=== PATIENT | female | born 1930 | race Caucasian/White ===

== ENCOUNTER → 2017-08-04 | Outpatient (REF) | payer MEDICARE ==
[~2017-08-04] MED LIST: /DULO30CA PO; /VERA12TA PO; ABIL5TAB OR; ACET500T PO; ASPI81TA45 PO; ATEN50TA2 PO; BENI20TA11 OR; CALC500T36 PO; CLON0.5T PO; COZA25TA8 PO; FERR325T3 PO; LASI20TA PO; LASI40TA; LASI40TA PO; LETR2.5T PO; LEVO175T3 PO; MAGN250T OR; METH5TAB2; MIRA255PW PO; OXYB5TAB4 OR; OXYB5TAB5 OR; OXYC10TA12; OXYC10TA97; OXYC10TA97 OR; OXYC5CAP4 OR; PACE400T PO; PERC5TAB8 PO; PERCOCET PO; PRIL20CA PO; PRIMI25TA; PRIMI25TA PO; SENO8.6T9 PO; TENO50TA PO; TRAZ100T2 PO; TRAZ150T; TRAZ150T PO; TUMS500C PO; TYLE325T5 PO; VERA180C3 PO; VESICARE OR; VITAMIN D PO; VITAMIN D50000 UNT; VOLT1GEL TOP
[2017-08-05 11:28] LABS: MEAN CORPUSCULAR HEMOGLOBIN 32.4 pg (27.0-33.0); MEAN CORPUSCULAR HGB CONC 32.6 g/dl (32.0-36.5); MEAN CORPUSCULAR VOLUME 99.4 fl (80.0-96.0); WHITE BLOOD COUNT 5.4 10^3/uL (4.0-10.0)
[2017-08-05 11:51] LABS: ALBUMIN 3.6 GM/DL (3.2-5.2); ALBUMIN/GLOBULIN RATIO 1.06 (1.00-1.93); ALKALINE PHOSPHATASE 69 U/L (45-117); ALT/SGPT 28 U/L (12-78); ANION GAP 5 MEQ/L (8-16); AST/SGOT 32 U/L (15-37); BILIRUBIN,TOTAL 0.3 MG/DL (0.2-1.0); BLOOD UREA NITROGEN 20 MG/DL (7-18); CALCIUM LEVEL 8.7 MG/DL (8.8-10.2); CARBON DIOXIDE LEVEL 35 MEQ/L (21-32); CHLORIDE LEVEL 98 MEQ/L (98-107); CREATININE FOR GFR 0.91 MG/DL (0.55-1.02); GLOMERULAR FILTRATION RATE > 60.0 (>32); GLUCOSE, FASTING 94 MG/DL (83-110); POTASSIUM SERUM 4.1 MEQ/L (3.5-5.1); SODIUM LEVEL 138 MEQ/L (136-145)
== END ==
LOC: M SFHCCLAY 15:43
PROVIDERS: ATTEND Family Medicine
DX: I10 Essential (primary) hypertension (principal); G25.0 Essential tremor; I47.1 Supraventricular tachycardia; E03.9 Hypothyroidism, unspecified
CPT/HCPCS: 80053; 84443; 85027; 90662; G0008; G0463

== ENCOUNTER → 2017-08-06 | Outpatient (REF) | payer MEDICARE | LOC: M SFHCCLAY 13:27 | PROVIDERS: ATTEND Family Medicine | DX: D64.9 Anemia, unspecified (principal) ==

== ENCOUNTER → 2018-01-20 | Outpatient (REF) | payer MEDICARE ==
[2018-01-20 11:52] LABS: HEMATOCRIT 34.4 % (36.0-47.0); HEMOGLOBIN 11.1 g/dl (12.0-16.0); MEAN CORPUSCULAR HEMOGLOBIN 32.4 pg (27.0-33.0); MEAN CORPUSCULAR HGB CONC 32.3 g/dl (32.0-36.5); MEAN CORPUSCULAR VOLUME 100.3 fl (80.0-96.0); PLATELET COUNT, AUTOMATED 234 10^3/uL (150-450); RED BLOOD COUNT 3.43 10^6/uL (4.00-5.40); RED CELL DISTRIBUTION WIDTH 13.5 % (11.5-14.5); WHITE BLOOD COUNT 6.5 10^3/uL (4.0-10.0)
[2018-01-20 12:34] LABS: ALBUMIN 3.7 GM/DL (3.2-5.2); ALBUMIN/GLOBULIN RATIO 1.12 (1.00-1.93); ALKALINE PHOSPHATASE 74 U/L (45-117); ALT/SGPT 37 U/L (12-78); ANION GAP 7 MEQ/L (8-16); AST/SGOT 36 U/L (7-37); BILIRUBIN,TOTAL 0.4 MG/DL (0.2-1.0); BLOOD UREA NITROGEN 25 MG/DL (7-18); CALCIUM LEVEL 8.8 MG/DL (8.8-10.2); CARBON DIOXIDE LEVEL 32 MEQ/L (21-32); CHLORIDE LEVEL 100 MEQ/L (98-107); CREATININE FOR GFR 1.07 MG/DL (0.55-1.30); GLOMERULAR FILTRATION RATE 51.8 (>32); GLUCOSE, FASTING 111 MG/DL (70-100); POTASSIUM SERUM 3.7 MEQ/L (3.5-5.1); SODIUM LEVEL 139 MEQ/L (136-145)
== END ==
LOC: M SFHCCLAY 09:07
DX: E03.9 Hypothyroidism, unspecified (principal); G25.0 Essential tremor; I10 Essential (primary) hypertension
CPT/HCPCS: 84443

== ENCOUNTER 2018-02-10 12:55 | Emergency (ER) | payer MEDICARE ==
[2018-02-10 14:21] LABS: HEMATOCRIT 32.6 % (36.0-47.0); HEMOGLOBIN 10.9 g/dl (12.0-15.5); MEAN CORPUSCULAR HEMOGLOBIN 32.7 pg (27.0-33.0); MEAN CORPUSCULAR HGB CONC 33.4 g/dl (32.0-36.5); MEAN CORPUSCULAR VOLUME 97.9 fl (80.0-96.0); PLATELET COUNT, AUTOMATED 195 10^3/uL (150-450); RED BLOOD COUNT 3.33 10^6/uL (4.00-5.40); RED CELL DISTRIBUTION WIDTH 13.4 % (11.5-14.5); WHITE BLOOD COUNT 7.9 10^3/uL (4.0-10.0)
[2018-02-10 14:41] LABS: AMPHETAMINES LEVEL URINE NEGATIVE (NEGATIVE); BARBITURATES URINE POSITIVE (NEGATIVE); BENZODIAZEPINES URINE NEGATIVE (NEGATIVE); CANNABINOIDS URINE NEGATIVE (NEGATIVE); COCAINE METABOLITE URINE NEGATIVE (NEGATIVE); METHADONE URINE NEGATIVE (NEGATIVE); OPIATES URINE POSITIVE (NEGATIVE); PHENCYCLIDINE URINE NEGATIVE (NEGATIVE)
[2018-02-10 14:50] LABS: ACETAMINOPHEN LEVEL < 2.0 UG/ML (10.0-30.0); ALBUMIN 3.5 GM/DL (3.2-5.2); ALBUMIN/GLOBULIN RATIO 1.06 (1.00-1.93); ALKALINE PHOSPHATASE 69 U/L (45-117); ALT/SGPT 29 U/L (12-78); ANION GAP 7 MEQ/L (8-16); AST/SGOT 36 U/L (7-37); BILIRUBIN,DIRECT 0.1 MG/DL (0.0-0.2); BILIRUBIN,TOTAL 0.4 MG/DL (0.2-1.0); BLOOD UREA NITROGEN 21 MG/DL (7-18); CALCIUM LEVEL 8.5 MG/DL (8.8-10.2); CARBON DIOXIDE LEVEL 30 MEQ/L (21-32); CHLORIDE LEVEL 104 MEQ/L (98-107); CREATININE FOR GFR 0.93 MG/DL (0.55-1.30); GLOMERULAR FILTRATION RATE > 60.0 (>32); GLUCOSE, FASTING 101 MG/DL (70-100); POTASSIUM SERUM 3.7 MEQ/L (3.5-5.1); SALICYLATE LEVEL < 1.7 MG/DL (5.0-30.0); SODIUM LEVEL 141 MEQ/L (136-145); TOTAL PROTEIN 6.8 GM/DL (6.4-8.2)
[2018-02-10 14:52] LABS: ETHYL ALCOHOL (ETHANOL) < 0.003 % (0.000-0.010)
== END 2018-02-10 17:16 | disposition home or self-care (01) ==
LOC: M ED 12:55
DX: F43.0 Acute stress reaction (principal); I10 Essential (primary) hypertension; E07.9 Disorder of thyroid, unspecified; K21.9 Gastro-esophageal reflux disease without esophagitis; Z91.048 Other nonmedicinal substance allergy status; Z79.899 Other long term (current) drug therapy; Z79.890 Hormone replacement therapy; Z79.82 Long term (current) use of aspirin
CPT/HCPCS: G0480

== ENCOUNTER → 2018-04-13 | Outpatient (REF) | payer MEDICARE ==
[2018-04-13 20:39] LABS: APPEARANCE, URINE CLOUDY (CLEAR); BACTERIA, URINE AUTO NEGATIVE (NEGATIVE); BILIRUBIN, URINE AUTO NEGATIVE (NEGATIVE); BLOOD, URINE BLOOD NEGATIVE (NEGATIVE); CALCIUM OXALATE CRYSTALS MODERATE; COLOR, URINE AMBER (YELLOW); GLUCOSE, URINE (UA) AUTO NEGATIVE (NEGATIVE); KETONE, URINE AUTO NEGATIVE (NEGATIVE); LEUKOCYTE ESTERASE, URINE AUTO TRACE (NEGATIVE); MUCUS, URINE SMALL (NEGATIVE); NITRITE, URINE AUTO NEGATIVE (NEGATIVE); PROTEIN, URINE AUTO NEGATIVE (NEGATIVE); RBC, URINE AUTO 5 /HPF (0-3); SPECIFIC GRAVITY URINE AUTO 1.023 (1.002-1.035); SQUAMOUS EPITHELIAL CELL UR AU 3 /HPF (0-6); WBC, URINE AUTO 4 /HPF (0-3)
== END ==
LOC: M LAB REF 16:23
DX: N39.46 Mixed incontinence (principal)
CPT/HCPCS: 81001

== ENCOUNTER → 2018-12-29 | Outpatient (REF) | payer MEDICARE ==
[~2018-12-29] MED LIST changes: +HYDR-3713 PO
[2018-12-29 17:42] LABS: HEMOGLOBIN 11.5 g/dl (12.0-15.5); MEAN CORPUSCULAR HEMOGLOBIN 32.8 pg (27.0-33.0); MEAN CORPUSCULAR HGB CONC 32.9 g/dl (32.0-36.5); MEAN CORPUSCULAR VOLUME 99.7 fl (80.0-96.0); PLATELET COUNT, AUTOMATED 226 10^3/uL (150-450); RED BLOOD COUNT 3.51 10^6/uL (4.00-5.40); WHITE BLOOD COUNT 6.3 10^3/uL (4.0-10.0)
[2018-12-29 17:47] LABS: ALBUMIN 3.4 GM/DL (3.2-5.2); BILIRUBIN,TOTAL 0.4 MG/DL (0.2-1.0); CALCIUM LEVEL 8.9 MG/DL (8.8-10.2); CREATININE FOR GFR 1.02 MG/DL (0.55-1.30); FREE T4 1.2 NG/DL (0.76-1.46); GLOMERULAR FILTRATION RATE 54.6 (>32); THYROID STIMULATING HORMONE 2.27 uIU/ML (0.358-3.740); TOTAL PROTEIN 6.6 GM/DL (6.4-8.2)
== END ==
LOC: M SFHCCLAY 10:06
PROVIDERS: ATTEND Family Medicine
DX: I47.1 Supraventricular tachycardia (principal); E03.9 Hypothyroidism, unspecified; I10 Essential (primary) hypertension
CPT/HCPCS: 80053; 84439; 84443; 85027; 90682; G0008

== ENCOUNTER → 2019-02-19 | Outpatient (REF) | payer MEDICARE ==
[~2019-02-19] MED LIST changes: -/DULO30CA PO; +CYMB1CAP5 PO; -MIRA255PW PO; +OXYC1TAB23 PO; -PERCOCET PO; +POLY1POW4 PO
[2019-02-19 17:18] LABS: BLOOD UREA NITROGEN 12 MG/DL (7-18); CARBON DIOXIDE LEVEL 36 MEQ/L (21-32); CHLORIDE LEVEL 90 MEQ/L (98-107); GLOMERULAR FILTRATION RATE > 60.0 (>32); GLUCOSE, FASTING 102 MG/DL (70-100); SODIUM LEVEL 132 MEQ/L (136-145); URIC ACID 3.3 MG/DL (2.6-6.0)
[2019-02-19 17:20] LABS: BASO % 0.3 % (0.0-1.0); EOS # 0.1 10^3/uL (0.0-0.50); EOS % 0.5 % (0.0-3.0); HEMOGLOBIN 11.1 g/dl (12.0-15.5); LYMPH # 1.7 10^3/uL (1.5-4.5); LYMPH % 14.6 % (24.0-44.0); MEAN CORPUSCULAR HEMOGLOBIN 33.2 pg (27.0-33.0); MEAN CORPUSCULAR HGB CONC 33.6 g/dl (32.0-36.5); MEAN CORPUSCULAR VOLUME 98.8 fl (80.0-96.0); MONO # 1.2 10^3/uL (0.0-0.8); MONO % 10.7 % (0.0-5.0); NEUTROPHILS # 8.3 10^3/uL (1.8-7.7); NEUTROPHILS % 73.5 % (36.0-66.0); PLATELET COUNT, AUTOMATED 336 10^3/uL (150-450); RED BLOOD COUNT 3.34 10^6/uL (4.00-5.40); WHITE BLOOD COUNT 11.3 10^3/uL (4.0-10.0)
== END ==
LOC: M SFHCCLAY 12:09
PROVIDERS: ATTEND Family Medicine
DX: L03.119 Cellulitis of unspecified part of limb (principal)
CPT/HCPCS: 36415; 80048; 84550; 85025; G0463

== ENCOUNTER 2019-03-27 09:59 | Inpatient (IN) | payer MEDICARE ==
[~2019-03-27] VITALS: Ht 157.5 cm; Wt 60.0 kg
[2019-03-27] MEDS: TOLTERODINE TARTRATE 2 MG LA CAP (DETROL LA) PO SCH (09:00)
[2019-03-27] MEDS ORDERED: HYDR-4571 PO (10:13)
[2019-03-27] MEDS ORDERED: OXYB5TAB PO (10:14)
[2019-03-27] MEDS ORDERED: HYDR-3363 PO (10:14)
--- NOTE | 2019-03-27 10:39 | REP ---
CT Head without contrast HISTORY: Infarction COMPARISON: 04/23/2013 Areas of decreased attenuation are present in the periventricular white matter. This represents small-vessel ischemic disease. There is no intraparenchymal hemorrhage, acute infarct, mass or midline shift. The ventricular system and cortical sulci as well as subarachnoid space in the posterior fossa are dilated consistent with mild volume loss. There is no extra cerebral collection. There is no fracture. The visualized sinuses are clear. IMPRESSION: 1. Small vessel ischemic disease. 2. Mild volume loss. Electronically Signed by Moises Grier MD 03/27/2019 10:31 A
[2019-03-27 11:09] LABS: BASO % 0.4 % (0.0-1.0); EOS % 0.1 % (0.0-3.0); HEMATOCRIT 39.4 % (36.0-47.0); HEMOGLOBIN 13.1 g/dl (12.0-15.5); LYMPH # 0.9 10^3/uL (1.5-4.5); LYMPH % 7.9 % (24.0-44.0); MEAN CORPUSCULAR HEMOGLOBIN 33.9 pg (27.0-33.0); MEAN CORPUSCULAR HGB CONC 33.2 g/dl (32.0-36.5); MEAN CORPUSCULAR VOLUME 101.8 fl (80.0-96.0); MONO # 0.9 10^3/uL (0.0-0.8); MONO % 7.8 % (0.0-5.0); NEUTROPHILS # 9.2 10^3/uL (1.8-7.7); NEUTROPHILS % 83.5 % (36.0-66.0); PLATELET COUNT, AUTOMATED 276 10^3/uL (150-450); RED BLOOD COUNT 3.87 10^6/uL (4.00-5.40)
--- NOTE | 2019-03-27 11:11 | REP ---
Chest one-view HISTORY: Infarction Comparison: 08/07/2013 A minimal increase in interstitial markings is present in the lower lobes consistent with chronic interstitial fibrosis. The heart is normal in size. The pulmonary vasculature is normal in appearance. Impression: Bibasilar chronic interstitial fibrosis. Electronically Signed by Moisse Grier MD 03/27/2019 11:02 A
[2019-03-27 11:21] LABS: INR 0.99; PROTHROMBIN TIME 13.2 SECONDS (12.1-14.4)
[2019-03-27 11:22] LABS: PARTIAL THROMBOPLASTIN TIME 29.8 SECONDS (25.4-37.6)
[2019-03-27] MEDS ORDERED: diphenhydrAMINE INJ 50MG/ML VIAL (J1200) IV STA (11:28)
[2019-03-27] MEDS ORDERED: methylPREDNISolone INJ 125 MG/2 ML VIAL (J2930) IV ONE (11:30)
[2019-03-27] MEDS ORDERED: FAMOTIDINE INJ 20MG/2ML VIAL (S0028) IVP ONE (11:30)
[2019-03-27 11:36] LABS: CALCIUM LEVEL 9.3 MG/DL (8.8-10.2); CREATININE FOR GFR 0.97 MG/DL (0.55-1.30); GLOMERULAR FILTRATION RATE 57.8 (>32); MB/CK RELATIVE INDEX 1.96 (< OR =4); TROPONIN I 0.69 NG/ML (< 0.10)
[2019-03-27] MEDS ORDERED: TRAZ150T90 PO (12:11)
[2019-03-27] MEDS ORDERED: LEVO175T19 PO (12:11)
[2019-03-27] MEDS ORDERED: VITAD1000T PO (12:11)
[2019-03-27] MEDS ORDERED: ECOT81TA5 PO (12:11)
[2019-03-27] MEDS ORDERED: OYST1TAB PO (12:11)
[2019-03-27] MEDS ORDERED: TOLT4CAP3 PO (12:11)
[2019-03-27] MEDS ORDERED: DULO60CA35 PO (12:11)
[2019-03-27] MEDS ORDERED: LOSA100T50 PO (12:11)
[2019-03-27] MEDS ORDERED: SENN-23 PO (12:11)
[2019-03-27] MEDS ORDERED: PRIM50TA6 PO (12:16)
[2019-03-27] MEDS ORDERED: PERCOCET PO (12:16)
[2019-03-27] MEDS ORDERED: FURO20TA2 PO (12:16)
[2019-03-27] MEDS ORDERED: POTASSIUM CHLORIDE 10% LIQ 20 MEQ/15 ML UDC PO ONE (13:00)
[2019-03-27 13:20] VITALS: BP 138/96
[2019-03-27] MEDS ORDERED: SLF 3 ML SYR IV PRN (15:30)
[2019-03-27] MEDS ORDERED: KCL 20MEQ IN 0.45NS 1000ML 1,000 ML IV SCH (15:45)
[2019-03-27 16:00] VITALS: BP 145/88
[2019-03-27] MEDS ORDERED: diphenhydrAMINE 50 MG CAP PO PRN (16:00)
[2019-03-27 20:00] VITALS: BP 146/74
[2019-03-27] MEDS: methylPREDNISolone INJ 125 MG/2 ML VIAL (J2930) IV SCH (20:25)
[2019-03-27] MEDS: SLF 3 ML SYR IV SCH (20:26)
[2019-03-27] MEDS: traZODone 25MG PER 1/2 TABLET PO SCH (20:26)
--- NOTE | 2019-03-27 21:46 | HPE ---
DATE OF ADMISSION: 03/27/2019 CHIEF COMPLAINT: Angioedema of the tongue. HISTORY: Sanjay Lockett is an 88-year-old patient of Dr. Taipa, admitted with swollen tongue she awoke with this morning. Family was concerned she was having a stroke, because she was having slurred speech. Upon arrival to the emergency room, it was astutely discovered that her tongue was quite swollen and edematous and isolation of any other neurologic injury. She had an episode 02/19/2019, where she presented to the [place] office with sudden office of swelling of her left foot. There was no precipitating injury. It just became swollen and remained swollen for several days. It was felt to be a cellulitis but in retrospect probably was another episode of angioedema. PAST MEDICAL HISTORY: 1. Hypertension. 2. History of depression. 3. Overactive bladder. 4. Hypothyroidism. 5. Basal cell carcinoma. 6. Supraventricular tachycardia (SVT), for which she was admitted April 2013. Had a normal echocardiogram. 7. Left breast cancer, status post lumpectomy and radiation. ALLERGIES: Band-Aids, which cause a rash. ARIMIDEX caused severe leg pain. Now it looks as though she is allergic to her LOSARTAN, but will include angiotensin receptor blockers (ARBs) and angiotensin-converting enzyme (ANAMARIA) inhibitors in the allergy list. CURRENT MEDICATIONS: - Cymbalta 60 mg daily - omeprazole 20 mg daily - oxybutynin ER 5 mg daily - oxycodone 5/325 one to two four times a day as needed, maximum dose 7 - furosemide 20 mg daily - levothyroxine 175 mcg daily - losartan 100 mg daily - trazodone 150 mg one and one a half tablets daily - primidone 50 mg three times a day - aspirin 81 mg daily - senna as needed - vitamin D - calcium - loperamide 2 mg as needed SURGICAL HISTORY: 1. Cholecystectomy. 2. Sounds like she had a pilonidal cyst drained. 3. Skin graft on her scalp for basal cell carcinoma. 4. Lumpectomy of the left breast. 5. She had an electrophysiology study (EPS) with an ablation procedure done for SVT August 2013. FAMILY HISTORY: Father of suicide. He had a history of cancer. Mother at 93. She had strokes, myocardial infarction ([place]) at a late age. SOCIAL HISTORY: Former smoker; quit over 10 years ago. No significant alcohol intake. 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 She is . Has a daughter, brother, son-in-law, and grandson living in the home with her. Lives at her daughter's. REVIEW OF SYSTEMS: No trouble swallowing secretions. No shortness of breath. No throat tightening or swelling of her lips. No chest pain, cough, hemoptysis, hematemesis. PHYSICAL EXAMINATION: VITAL SIGNS: Per flow sheet, 138/96, pulse of 100, respiratory rate 16, 96% oxygen saturation. GENERAL APPEARANCE: She is resting in bed in no distress. Pale, elderly. Pupils equal, round, reactive to light. Tympanic membranes (TMs) normal. Oropharynx shows her tongue edematous. No trauma. Lips are not swollen. There is no stridor. She is swallowing saliva without difficulty. LUNGS: Clear. No stridor. No wheezes. HEART: Regular rate and rhythm. No murmur. ABDOMEN: Soft and nontender. No masses. EXTREMITIES:. No clubbing or cyanosis. There is trace peripheral edema of the dorsum of the left foot. On the right, no erythema. NEUROLOGIC: Shows normal strength, reflexes, sensation. LABORATORY DATA: Electrolytes show a potassium of 3.0; otherwise unremarkable. Troponin was 0.69. White count 11, hemoglobin 13.3, platelets 276. PTT normal. PT normal. Chest x-ray: Showed bilateral fibrosis. CT of brain shows volume loss, small-vessel disease. IMPRESSION: 1. Angioedema of the tongue, probably from her losartan. In retrospect, this is probably the second event, with the swelling her left foot a month ago being the signal event. Losartan has been held. She should avoid ANAMRAIA inhibitors and ARBs in the future. Will monitor her blood pressure off medication. Probably start a calcium channel oscar or thiazide diuretic. She needs blood pressure control before discharge. 2. Mildly elevated troponin. Serial troponins have been ordered. 3. Hypothyroidism. Keep her on dose of levothyroxine. 4. Overactive bladder. Continue her tolterodine ER 4 mg daily. 5. History of depression. Continue her duloxetine 60 mg daily. She has been placed in the progressive care unit (PCU). I have given her intravenous (IV) cortisone, IV Benadryl, and IV Pepcid. Will consult ears, nose, and throat (ENT. Dr. Limon is attraction worker. I have called his office. They will relay the message for him to call. At this point, she is stable, but I think it would be prudent for ENT to at least know she is here in case things worsen subsequently. She has no upper airway obstruction or trouble handling secretions at all at this point.
[2019-03-27 22:38] LABS: MB/CK RELATIVE INDEX 5.22 (< OR =4); TROPONIN I 8.98 NG/ML (< 0.10)
[2019-03-27 22:45] VITALS: BP 160/88
[2019-03-27 22:46] VITALS: BP 160/88
[2019-03-27] MEDS: ASPIRIN 325 MG TAB PO SCH (23:12)
[2019-03-27] MEDS: CLOPIDOGREL 75 MG TAB PO SCH (23:12)
[2019-03-27] MEDS: METOPROLOL TART 25 MG TABLET PO SCH (23:12)
[2019-03-27] MEDS: ENOXAPARIN 100MG/1ML SYRINGE (J1650) SC SCH (23:50)
[2019-03-27] MEDS: ROSUVASTATIN 10 MG TAB (CRESTOR) PO SCH (23:50)
[2019-03-28] MEDS ORDERED: FAMOTIDINE INJ 20MG/2ML VIAL (S0028) IVP SCH
[2019-03-28] MEDS: FAMOTIDINE IV BAG 20 MG in APPROPRIATE DILUENT 1 EA IV SCH ×2 (00:32→12:25)
[2019-03-28 04:00] VITALS: BP 133/65
[2019-03-28] MEDS: methylPREDNISolone INJ 125 MG/2 ML VIAL (J2930) IV SCH ×3 (04:01→20:05)
[2019-03-28] MEDS: SLF 3 ML SYR IV SCH ×3 (05:42→20:07)
[2019-03-28 05:43] LABS: BASO % 0.2 % (0.0-1.0); HEMATOCRIT 41.3 % (36.0-47.0); HEMOGLOBIN 13.3 g/dl (12.0-15.5); LYMPH % 8.4 % (24.0-44.0); MEAN CORPUSCULAR HEMOGLOBIN 32.8 pg (27.0-33.0); MEAN CORPUSCULAR HGB CONC 32.2 g/dl (32.0-36.5); MEAN CORPUSCULAR VOLUME 101.7 fl (80.0-96.0); MONO # 0.9 10^3/uL (0.0-0.8); MONO % 7.3 % (0.0-5.0); NEUTROPHILS # 10.4 10^3/uL (1.8-7.7); NEUTROPHILS % 83.8 % (36.0-66.0); PLATELET COUNT, AUTOMATED 255 10^3/uL (150-450); RED BLOOD COUNT 4.06 10^6/uL (4.00-5.40); WHITE BLOOD COUNT 12.4 10^3/uL (4.0-10.0)
[2019-03-28] MEDS ORDERED: LEVOTHYROXINE 150MCG TABLET (0.15MG) PO SCH (06:00)
--- NOTE | 2019-03-28 06:01 | ECGEPIP ---
[facility] - ED Test Date: 2019-03-27 Pat Name: MAKENZIE LOZA Department: Room: - Gender: F Crime Victim Specialist: : 1930 Requested By: NIALL Crow Order Number: [id number] Reading MD: Bart Velez Measurements Intervals [place] Rate: 91 P: [place]: 0 QRS: -8 QRSD: 155 T: 0 QT: 437 QTc: 540 Interpretive Statements ATRIAL FIBRILLATION MODERATE INTRAVENTRICULAR CONDUCTION DELAY NO PRIORS FOR COMPARISON Electronically Signed on 03-28-2019 6:01:21 EDT by Bart Velez
[2019-03-28 06:06] LABS: CALCIUM LEVEL 8.6 MG/DL (8.8-10.2); CREATININE FOR GFR 0.95 MG/DL (0.55-1.30); GLOMERULAR FILTRATION RATE 59.2 (>32); MAGNESIUM LEVEL 1.8 MG/DL (1.8-2.4); MB/CK RELATIVE INDEX 4.71 (< OR =4); POTASSIUM SERUM 3.6 MEQ/L (3.5-5.1); TROPONIN I 6.2 NG/ML (< 0.10)
--- NOTE | 2019-03-28 06:06 | ECGEPIP ---
[facility] - ED Test Date: 2019-03-27 Pat Name: MAKENZIE LOZA Department: Room: [place] [address] Gender: F Grading Supervisor: : 1930 Requested By: NIALL Crow Order Number: [id number] Reading MD: Bart Velez Measurements Intervals [place] Rate: 98 P: [place]: 0 QRS: -3 QRSD: 82 T: 64 QT: 313 QTc: 401 Interpretive Statements ATRIAL FIBRILLATION WITH ABERRANT CONDUCTION OR VENTRICULAR PREMATURE COMPLEXES NONSPECIFIC ST & T-WAVE ABNORMALITY MODERATE INTRAVENTRICULAR CONDUCTION DELAY SIMILAR TO PRIOR ON SAME DATE Electronically Signed on 03-28-2019 6:05:37 EDT by Bart Velez
[2019-03-28 08:00] VITALS: BP 133/82
--- NOTE | 2019-03-28 08:33 | ECGEPIP ---
[facility] Test Date: 2019-03-28 Pat Name: MAKENZIE LOZA Department: Room: [place] [address] Gender: Female Boat Buffer Plastic: CORKY : 1930 Requested By: Hector Gil Order Number: [id number] Reading MD: Lola Lozada Measurements Intervals [place] Rate: 90 P: 54 [place]: 151 QRS: 5 QRSD: 83 T: 176 QT: 461 QTc: 565 Interpretive Statements SINUS RHYTHM WITH PAC ACUTE LAT STEMI NEW [id number] QTC NEW Spoke with pts n nurse on PCU She will notify DR Gil now Electronically Signed on 03-28-2019 8:33:03 EDT by Lola Lozada
--- NOTE | 2019-03-28 09:25 | IPN ---
DATE: 03/28/2019 Wave is seen in progressive care unit (PCU). She is short of breath today, more of labored respirations. She is not stridorous. Her tongue swelling is perhaps a little better than yesterday but not significantly. Of more significance is that she now appears to have evidence of a ST segment elevation myocardial infarction. She bumped her troponin from 0.69 on admission to 8.9 last night, down to 6.2 now. I discussed the case with Dr. Nunez this morning, at the time we are suspecting a non ST segment elevation myocardial infarction; however, followup electrocardiogram (EKG) was ordered, which shows inferolateral ST elevations, so I placed a call back to manager maintenance, Dr. Grossman. I electronically sent him copies of the electrocardiogram and he agrees with the interpretation. She denies any chest pain. She is not stridorous. She is not having any trouble with any secretions. In fact she wants to have some breakfast. She is tired of clear liquids. PHYSICAL EXAMINATION: 133/82, pulse 90, respiratory rate 18, 98% oxygen saturation. GENERAL APPEARANCE: She is elderly and frail. Her tongue is still quite swollen. Her speech is dysarthric from this. She is not having any stridor or trouble swallowing secretions. LUNGS: Clear. HEART: Regular rhythm. 1/6 systolic ejection murmur. ABDOMEN: Soft, nontender, no masses. EXTREMITIES: No peripheral edema. LABORATORIES: Troponin bumped to 8.9 and is now down to 6.2. Sodium 137, potassium 3.6, BUN 16, creatinine 0.9, glucose 118, white count 12.4, hemoglobin 13.3, platelets 255. IMPRESSION: 1. Angioedema of the tongue, probably from losartan. Continue steroids, antihistamines, H2 antagonist, and I have ordered some popsicles for her. We will advance her diet. 2. ST segment elevation myocardial infarction. Case was discussed with cardiology. She had been started on beta oscar, aspirin and Plavix last night. She is quite elderly and frail and I am not sure if she is a candidate for aggressive treatment. Cardiology is consulted. 3. Hypothyroidism. Continue current dose of levothyroxine. 4. History of depression. Continue duloxetine. The case was discussed with Dr. Limon yesterday and he is aware of the case. I had him on board in case her condition worsened overnight, which did not happen.
[2019-03-28] MEDS: ENOXAPARIN 100MG/1ML SYRINGE (J1650) SC SCH ×2 (09:52→20:05)
[2019-03-28] MEDS: CLOPIDOGREL 75 MG TAB PO SCH (09:54)
[2019-03-28] MEDS: ASPIRIN 325 MG TAB PO SCH (09:54)
[2019-03-28] MEDS: TOLTERODINE TARTRATE 2 MG LA CAP (DETROL LA) PO SCH (09:54)
[2019-03-28] MEDS: DULoxetine 30 MG CAP (CYMBALTA) PO SCH (09:54)
[2019-03-28] MEDS: METOPROLOL TART 25 MG TABLET PO SCH (09:54)
--- NOTE | 2019-03-28 11:37 | IPNPDOC ---
Text Note Date of Service The patient was seen on 03/28/19. NOTE CARDIOLOGY CONSULT NOTE FOR DR GARDNER HPI: Ms. Lockett is an 88 year old female who presented to the ED after a two day long duration of tongue swelling that came on acutely. She states that she had an episode of left foot swelling acutely develop about three months ago, she did not seek medical care for this either and instead it went away on its own at home. She has noted some chest discomfort, but she points to her left lower rib cage and LUQ area, for the past two days, shes never had this in the past. She said it is more of a sharp pain without radiation, she also noted some diffuse sweating associated with this, it has lasted intermittently for about two days, although she denies having the pain on examination today. She also had some accompanying nausea but no vomiting. She has had no fevers recently. She denied a recent medication change. She denied SOB or palpitations, she has no headache right now and no change in vision. She denies any associated jaw or shoulder pain. PAST MEDICAL HISTORY: Includes, HTN, hypothyroidism, BCC, SVT in 2012, L breast cancer s/p lumpectomy & radiation SURGICAL HISTORY: 1. Cholecystectomy. 2. Sounds like she had a pilonidal cyst drained. 3. Skin graft on her scalp for basal cell carcinoma. 4. Lumpectomy of the left breast. 5. She had an electrophysiology study (EPS) with an ablation procedure done for SVT August 2013. 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 lives at home on the second floor of her daughters home, her daughter is at home and helps her with her daily activities ROS: General: She is a bit tired this morning, but has no other complaints besides her swollen tongue HEENT: Denies recent headache or change in vision Resp: No SOB or wheezing noted,no cough Cardiac: No chest pain currently GI/: No change in bowel habits recently PE Vitals: See below General: This is an 88 year old women appearing her stated age, in bed, comfortable but with difficulty speaking due to diffuse enlargement of her tongue HEENT: EOMI, tongue is diffusely swollen, moist mucus membranes Resp: diminished throughout, no rales, crackles or wheezing Cardio: normal s1 and s2., no s4 appreciated, no murmurs appreciated, RRR Abdominal: nabsx4, no hepatosplenomegaly, no masses, no tenderness to palpation, no distension, no rebound ridgity or guarding Extremities: b/l LE trace edema without cyanosis or mottling A&P This is an 88 year old female who presented to the ED with tongue swelling and found to have increased troponin level and subsequent development of ST elevation upon hospital admission and forthcoming EKG's. 1. Elevated Troponin in light of ST elevation in leads V4-6, with associated increase in troponin levels -The patients EKG's were reviewed, she does not demonstrate an ST elevation in leads V4-6, her troponin level has improved but is still 6.2 from prior 8.9. The patient has expressed wishes to not have any invasive intervention and it is appropriate for right now to treat medically. She received a dose of Plavix today, however will change to Ticagrelor 90 mg BID, have d/c plavix. We will also begin her on high intensity statin therapy along with BID Beta-oscar therapy, have d/c her once daily Lopressor. She is to continue on daily aspirin. She has had no history of major bleeding events, per patient and daughter. She is to have ECHO performed STAT this morning to evaluate for wall motion abnormalities and hypokinesis. Depending on these results, will dictate further care. 2. Angioedema of tongue -Her ANAMARIA-I's have been d/c, she should probably avoid these medications in the future, her left foot swelling could possibly represent another past episode of ANAMARIA related angioedema. Addendum MD Keaton: Patient seen and examined, record reviewed. Agree with note of . Briefly elderly lady with no prior h/o CAD presenting with angioedema. She denied any CP to me. There is elevated troponin and rather diffuse ST elevations on ECG. Patient does not want to pursue any invasive measures. Plan for conservative management as outlined above. A-FIB/CHADSVASC A-FIB History Current/History of A-Fib/PAF?: No VS,Fishbone, I+O VS, Fishbone, I+O Laboratory Tests 03/28/19 05:28 Red Blood Count 4.06, Mean Corpuscular Volume 101.7 H, Mean Corpuscular Hemoglobin 32.8, Mean Corpuscular Hemoglobin Concent 32.2, Red Cell Distribution Width 13.6, Neutrophils (%) (Auto) 83.8 H, Lymphocytes (%) (Auto) 8.4 L, Monocytes (%) (Auto) 7.3 H, Eosinophils (%) (Auto) 0.0, Basophils (%) (Auto) 0.2, Neutrophils # (Auto) 10.4 H, Lymphocytes # (Auto) 1.0 L, Monocytes # (Auto) 0.9 H, Eosinophils # (Auto) 0.0, Basophils # (Auto) 0.0, Calcium Level 8.6 L, Total Creatine Kinase 272 H Vital Signs Date Time Temp Pulse Resp B/P (MAP) Pulse Ox O2 Delivery O2 Flow Rate FiO2 03/28/19 09:54 106 160/80 03/28/19 08:00 97.5 18 98 03/27/19 13:24 Room Air I&O- Last 24 Hours up to 6 AM 03/28/19 06:00 Intake Total 300 ml Output Total 800 ml Balance -500 ml GME ATTESTATION GME ATTESTATION My faculty preceptor for this patient encounter was physically present during the encounter and was fully available. All aspects of the patient interview, examination, medical decision making process, and medical care plan development were reviewed and approved by the faculty preceptor. The faculty preceptor is aware and concurs with the plan as stated in the body of this note and will attest to such by his/her cosignature. MAURICE ROBIN DO March 28, 2019 11:37 Manuel Gardner MD March 28, 2019 22:29
[2019-03-28 12:00] VITALS: BP 174/98
[2019-03-28] MEDS: traZODone 25MG PER 1/2 TABLET PO SCH ×2 (12:26→20:06)
[2019-03-28] MEDS ORDERED: ATORVASTATIN 20 MG TAB PO SCH (13:00)
--- NOTE | 2019-03-28 13:55 | CR ---
DATE OF CONSULTATION: 03/27/2019 REQUESTING PHYSICIAN: Dr. Gil CHIEF COMPLAINT: Angioedema of the tongue. HISTORY OF PRESENT ILLNESS: This 88-year-old woman is admitted to the hospital due to angioedema of the tongue. She was initially found by a family member who was concerned about the patient having a stroke. In the emergency department, she was found to have enlarged and edematous oral tongue. At this time, the patient has no acute respiratory distress. However, the troponin level is elevated. At the time of my evaluation of the patient on the evening of 03/27/2019, troponin level is 8. Dr. Chase had been contacted at that time. PAST MEDICAL HISTORY: 1. Hypertension. 2. Hypothyroidism. 3. Depression. 4. Left breast cancer. 5. Supraventricular tachycardia. ALLERGIES: BAND-AIDS, LOSARTAN given the newly diagnosed angioedema of the tongue. CURRENT MEDICATIONS: - Cymbalta - omeprazole - oxybutynin - oxycodone - furosemide - levothyroxine - losartan - trazodone - primidone - aspirin - Senna - vitamin D - calcium - loperamide PAST SURGICAL HISTORY: Reviewed and none in the head and neck region. FAMILY HISTORY: Reviewed. SOCIAL HISTORY: Ex smoker for more than 10 years. REVIEW OF SYSTEMS: Denies dysphagia, shortness of breath, chest pain, hemoptysis, or cough. PHYSICAL EXAMINATION: The patient appears in no acute distress. Lying supine without respiratory difficulty. No stridor. No use of accessory muscles. Oral cavity shows edematous oral tongue, floor of the mouth not elevated. Able to protrude the tongue anteriorly beyond the lower lip line. NECK: Trachea midline. Palpable thyroid notch and cricoid cartilage. No cervical lymphadenopathy. IMPRESSION: This 88-year-old woman is admitted to the hospital for angioedema of the tongue, as well as an elevated troponin. PLAN: I will defer all the medical management to the family medicine service at this time. I am aware of the presence of the patient in the hospital. Please contact me if there is a need for emergency surgical airway. Otherwise, I will see this patient on an as needed basis.
[2019-03-28 14:47] LABS: MB/CK RELATIVE INDEX 4.69 (< OR =4); TROPONIN I 5.94 NG/ML (< 0.10)
[2019-03-28 16:00] VITALS: BP 148/98
[2019-03-28 20:00] VITALS: BP 158/92
[2019-03-28] MEDS: ROSUVASTATIN 10 MG TAB (CRESTOR) PO SCH (20:06)
[2019-03-28] MEDS ORDERED: METOPROLOL TART 25 MG TABLET PO SCH (21:00)
[2019-03-28 23:59] VITALS: BP 148/90
[2019-03-29] VITALS (8 sets, daily range): BP systolic 129–170; BP diastolic 60–118
[2019-03-29] MEDS: FAMOTIDINE IV BAG 20 MG in APPROPRIATE DILUENT 1 EA IV SCH (00:11)
[2019-03-29] MEDS ORDERED: METOPROLOL TART 25 MG TABLET PO ONE (03:15)
[2019-03-29] MEDS: SLF 3 ML SYR IV SCH ×3 (03:34→22:07)
[2019-03-29] MEDS: methylPREDNISolone INJ 125 MG/2 ML VIAL (J2930) IV SCH ×3 (03:34→21:16)
[2019-03-29 05:17] LABS: BASO % 0.1 % (0.0-1.0); HEMATOCRIT 41.2 % (36.0-47.0); HEMOGLOBIN 13.9 g/dl (12.0-15.5); LYMPH % 7.2 % (24.0-44.0); MEAN CORPUSCULAR HGB CONC 33.7 g/dl (32.0-36.5); MEAN CORPUSCULAR VOLUME 100.7 fl (80.0-96.0); MONO % 6.9 % (0.0-5.0); NEUTROPHILS % 85.3 % (36.0-66.0); PLATELET COUNT, AUTOMATED 298 10^3/uL (150-450); RED BLOOD COUNT 4.09 10^6/uL (4.00-5.40)
[2019-03-29 05:40] LABS: CALCIUM LEVEL 8.6 MG/DL (8.8-10.2); CREATININE FOR GFR 1.14 MG/DL (0.55-1.30); POTASSIUM SERUM 3.2 MEQ/L (3.5-5.1)
[2019-03-29] MEDS ORDERED: LORazepam 1 MG TAB PO ONE (06:30)
[2019-03-29] MEDS: LEVOTHYROXINE 75MCG TABLET (0.075MG) PO SCH (06:31)
[2019-03-29] MEDS: LEVOTHYROXINE 100MCG TABLET (0.1MG) PO SCH (06:31)
--- NOTE | 2019-03-29 08:03 | ECGEPIP ---
[facility] Test Date: 2019-03-29 Pat Name: MAKENZIE LOZA Department: Room: [place] [address] Gender: Female Patent Lawyer: CORKY : 1930 Requested By: MAURICE ROBIN Order Number: [id number] Reading MD: Lola Lozada Measurements Intervals [place] Rate: 93 P: 26 [place]: 146 QRS: QRSD: 92 T: 149 QT: 438 QTc: 545 Interpretive Statements SINUS RHYTHM WITH FREQUENT SUPRAVENTRICULAR BEATS NEW PERSISTENT ST ELEV IN AVL AND I LATERAL T ABN PERSIST iNF T ABN IMPROVED M MILD INF ST ELEV IMPROVED NE IN EVOLUTION C/W 03/28/19 PROLONG QTC Electronically Signed on 03-29-2019 8:03:06 EDT by Lola Lozada
[2019-03-29] MEDS ORDERED: PREVNAR 13 VACCINE SYRINGE (CPT CODE:90670) IM ONE (09:00)
[2019-03-29] MEDS ORDERED: POTASSIUM CHLORIDE 10 MEQ SR TABLET PO ONE (09:00)
[2019-03-29 09:13] LABS: MAGNESIUM LEVEL 2.3 MG/DL (1.8-2.4)
--- NOTE | 2019-03-29 09:14 | ECHO ---
DATE OF PROCEDURE: 03/28/2019 DATE OF : 1930 AGE: 88 REFERRING PROVIDER: Dr. Hector Gil REASON FOR THE ECHOCARDIOGRAM: Abnormal troponin, myocardial infarction ([place]). 2-D MEASUREMENTS: IVS: 1.1 cm LV: 3.4 cm LVPW: 1.1 cm LA: 3.3 cm Aorta: 3.1 cm IVC: 1.3 cm DOPPLER MEASUREMENTS: Peak velocity across the aortic valve: 1.1 m/s Peak velocity across the LVOT: 1.1 m/s Mitral E: 1.2 Maximum tricuspid valve velocity: 2.6 m/s 2-D COMMENTS: 1. Normal left ventricular size and wall thickness with a normal global left ventricular systolic function. The inferior wall, particular the mid segment and probably the apical segment seems to be hypokinetic. Overall, hypokinesis was noted in the other tamez of the left ventricle. The estimated global left ventricular systolic function is 55-60%. 2. Subjectively, the left atrium appeared to be mildly enlarged. Normal right atrium and right ventricle. 3. The atrial septum appeared to be normal without evidence of defect or shunt. 4. Normal aortic root. 5. A small pericardial effusion was noted, no evidence of cardiac tamponade. 6. Mildly calcified aortic valve with normal leaflet excursion. Mildly calcified mitral annulus with normal anterior mitral valve leaflet motion. Normal tricuspid valve and pulmonic valve. The proximal pulmonary artery branches were not well visualized. 7. The inferior vena cava was normal in size, central venous pressure might be normal. DOPPLER: It detects mild aortic regurgitation, moderate eccentric mitral regurgitation, mild tricuspid regurgitation. The calculated pulmonary artery systolic pressure varies between 30-40 mmHg. Subjectively, there are features of left ventricular diastolic dysfunction. IMPRESSION: 1. Normal global left ventricular systolic function. As mentioned above, there are some features of left ventricular diastolic dysfunction but assessment was limited. 2. Moderate eccentric mitral regurgitation with mitral annulus calcification. Subjectively, the left atrium appeared to be mildly enlarged. 3. Mild tricuspid regurgitation with mild pulmonary hypertension. 4. Aortic valve sclerosis with mild aortic regurgitation. 5. Small pericardial effusion, no evidence of cardiac tamponade. MTDD
[2019-03-29] MEDS: METOPROLOL TART 50 MG TAB PO SCH ×2 (09:20→21:18)
[2019-03-29] MEDS: ASPIRIN 325 MG TAB PO SCH (09:20)
[2019-03-29] MEDS: DULoxetine 30 MG CAP (CYMBALTA) PO SCH ×2 (09:20→14:06)
[2019-03-29] MEDS: TICAGRELOR 90 MG TABLET (BRILINTA) PO SCH ×2 (09:20→21:17)
[2019-03-29] MEDS: ENOXAPARIN 100MG/1ML SYRINGE (J1650) SC SCH ×2 (09:20→21:18)
[2019-03-29] MEDS: TOLTERODINE TARTRATE 2 MG LA CAP (DETROL LA) PO SCH ×2 (09:20→14:05)
--- NOTE | 2019-03-29 09:22 | IPNPDOC ---
Text Note Date of Service The patient was seen on 03/29/19. NOTE CARDIOLOGY CONSULT NOTE FOR DR GARDNER HPI: Ms. Lockett is seen on bedside rounds this morning, she complaints of difficulty breathing, she denies any of the prior chest pain or abdominal discomfort. She just states it is difficult for her to take a deep breath in and she feels uncomfortable. ROS: General: She is complaining of difficulty breathing this morning, this is worse from yesterday, she denies any CP, she said the SOB began a few hours earlier HEENT: Denies recent headache or change in vision Resp: denies cough or wheezing Cardiac: No chest pain currently one examination GI/: No change in bowel habits recently PE Vitals: See below General: This is an 88 year old women appearing her stated age, in bed, she actually appears comfortable but admits she is more SOB right now, it is the worse it has been this stay, her tongue swelling is improved. HEENT: EOMI, tongue is diffusely swollen but improved from yesterday, moist mucus membranes Resp: diminished throughout, no rales, crackles or wheezing Cardio: normal s1 and s2., no s4 appreciated, MR murmur present, RRR Abdominal: nabsx4, no hepatosplenomegaly, no masses, no tenderness to palpation, no distension, no rebound ridgity or guarding Extremities: b/l LE trace edema without cyanosis or mottling A&P This is an 88 year old female who presented to the ED with tongue swelling and found to have increased troponin level and subsequent development of ST elevation upon hospital admission and forthcoming EKG's. 1. Elevated Troponin in light of ST elevation in leads lateral leads, I, AVL, V4-6, with associated increase in troponin levels -Repeat EKG done this morning does some some lateral lead ST elevations, but not as pronounced as prior EKG's have demonstrated. S had shown elevations in lateral leads I, AVL, V4-6, her troponin level has improved of recent but is still 5.9 from 6.2. She is complaining of SOB on exam today but does not appear dyspneic clinically, can appreciate no wheezing or crackles on physical exam. We will add isosorbide dinitrate to her medical regime to help her some relief. The patient has expressed wishes to not have any invasive intervention, however we did review her ECHO this morning, it is evident that she has had some inferior lateral wall abnormality/hypokinesis. She would benefit from ultimate coronary cath. at this point in time if more aggressive measures were wanted by the patient. She is to continue on Ticagrelor, Lovenox and aspirin. She has had her beta oscar increased, her heart rate was a bit fast overnight and into the morning, we will watch this. Her BP is surprisingly on the elevated side, she can tolerate the increase in BB therapy. She has had no history of major bleeding events, per patient and daughter. Unfortunately her prognosis is not great, given her symptoms, ECHO results, and wishes to not pursue more invasive procedures such as coronary cath., we will continue to medically manage. 2. Angioedema of tongue -Her ANAMARIA-I's have been d/c, her tongue swelling is improved this morning. She should avoid these medications in the future, her left foot swelling could possibly represent another past episode of ANAMARIA related angioedema. This is unfortunate as given he current cardiac situation, she would benefit from ANAMARIA therapy. A-FIB/CHADSVASC A-FIB History Current/History of A-Fib/PAF?: No VS,Fishbone, I+O VS, Fishbone, I+O Laboratory Tests 03/29/19 05:01 Red Blood Count 4.09, Mean Corpuscular Volume 100.7 H, Mean Corpuscular Hemoglobin 34.0 H, Mean Corpuscular Hemoglobin Concent 33.7, Red Cell Distribution Width 13.7, Neutrophils (%) (Auto) 85.3 H, Lymphocytes (%) (Auto) 7.2 L, Monocytes (%) (Auto) 6.9 H, Eosinophils (%) (Auto) 0.0, Basophils (%) (Auto) 0.1, Neutrophils # (Auto) 12.0 H, Lymphocytes # (Auto) 1.0 L, Monocytes # (Auto) 1.0 H, Eosinophils # (Auto) 0.0, Basophils # (Auto) 0.0, Calcium Level 8.6 L Vital Signs Date Time Temp Pulse Resp B/P (MAP) Pulse Ox O2 Delivery O2 Flow Rate FiO2 03/29/19 04:00 97.8 125 20 158/98 (118) 95 03/27/19 13:24 Room Air I&O- Last 24 Hours up to 6 AM 03/29/19 06:00 Intake Total 350 ml Output Total 200 ml Balance 150 ml GME ATTESTATION GME ATTESTATION My faculty preceptor for this patient encounter was physically present during the encounter and was fully available. All aspects of the patient interview, examination, medical decision making process, and medical care plan development were reviewed and approved by the faculty preceptor. The faculty preceptor is aware and concurs with the plan as stated in the body of this note and will attest to such by his/her cosignature. MAURICE ROBIN DO March 29, 2019 09:22
[2019-03-29] MEDS ORDERED: BISACODYL 10 MG SUPP PR PRN (09:45)
--- NOTE | 2019-03-29 09:56 | IPNPDOC ---
Subjective Date Seen The patient was seen on 03/29/19. Subjective Chief Complaint/HPI Overnight and into this morning Sanjay has c/o increasing SOB, difficulty catching her breath. She states that she feels unwell but unable to articulate further. She feels her tongue swelling has improved some overnight. General: Reports: Fatigue Constitutional: Reports: Malaise, Weakness, Lethargy; Denies: Chills, Fever ENT: Denies: Head Aches Pulmonary: Reports: Dyspnea, Cough (unable to cough due to strength per pt) Cardiovascular: Denies: Chest Pain, Palpitations Gastrointestinal: Denies: Nausea, Vomiting Neurological: Reports: Weakness Objective Physical Examination General Exam: Positive: Alert, Cooperative, No Acute Distress ENT Exam: Positive: Mucous membr. moist/pink, Tongue Midline (swollen, slightly protruding) Neck Exam: Positive: Supple Chest Exam: Positive: Diminished (L basilar rales); Negative: Normal air movement Heart Exam: Positive: Tachycardic, Murmurs Abdomen Exam: Positive: Normal bowel sounds, Soft; Negative: Tenderness Extremity Exam: Positive: Edema (BLE trace) Neuro Exam: Negative: Normal Speech (slurred likely d/t swollen tongue) Psych Exam: Positive: Mental status NL A-FIB/CHADSVASC A-FIB History Current/History of A-Fib/PAF?: No Assessment /Plan Problems (1) ST elevation (STEMI) myocardial infarction Status: Acute Discussed With: Nurse, Patient Problem Specific Plan: Consult Specialist, Monitor Clinically, Repeat Labs Problem Text: Pt is being followed by Cardio. She has declined cardiac cath and transfer. Her condition has declined clinically overnight and she cont to refuse transfer for more aggressive cardiac intervention. Will obtain STAT CXR today. She will cont with ASA, Lovenox (treatment dose), beta oscar. Isordil ordered today. Cont with O2. (2) Angioedema Status: Acute Response to Treatment: Stable Problem Specific Plan: Monitor Clinically Problem Text: Some improvement, cont with Solumedrol. Plan/VTE VTE Prophylaxis Ordered?: Yes VS, I&O, 24H, Fishbone Vital Signs/I&O Vital Signs Date Time Temp Pulse Resp B/P (MAP) Pulse Ox O2 Delivery O2 Flow Rate FiO2 03/29/19 08:00 98.1 101 20 166/98 (120) 90 03/27/19 13:24 Room Air I&O- Last 24 Hours up to 6 AM 03/29/19 05:59 Intake Total 350 ml Output Total 200 ml Balance 150 ml Laboratory Data 24H LABS Laboratory Tests 2 03/28/19 13:52: Total Creatine Kinase 211H, Creatine Kinase MB 10.0H, Creatine Kinase MB Relative Index 4.69H, Troponin I 5.94*H 03/29/19 05:01: Immature Granulocyte % (Auto) 0.5, White Blood Count 14.0H, Red Blood Count 4.09, Hemoglobin 13.9, Hematocrit 41.2, Mean Corpuscular Volume 100.7H, Mean Corpuscular Hemoglobin 34.0H, Mean Corpuscular Hemoglobin Concent 33.7, Red Cell Distribution Width 13.7, Platelet Count 298, Neutrophils (%) (Auto) 85.3H, Lymphocytes (%) (Auto) 7.2L, Monocytes (%) (Auto) 6.9H, Eosinophils (%) (Auto) 0.0, Basophils (%) (Auto) 0.1, Neutrophils # (Auto) 12.0H, Lymphocytes # (Auto) 1.0L, Monocytes # (Auto) 1.0H, Eosinophils # (Auto) 0.0, Basophils # (Auto) 0.0, Nucleated Red Blood Cells % (auto) 0.0, Anion Gap 5L, Glomerular Filtration Rate 48.0, Blood Urea Nitrogen 31#H, Creatinine 1.14, Sodium Level 137, Potassium Level 3.2L, Chloride Level 99, Carbon Dioxide Level 33H, Calcium Level 8.6L, Magnesium Level 2.3 CBC/BMP Laboratory Tests 03/29/19 05:01 Red Blood Count 4.09, Mean Corpuscular Volume 100.7 H, Mean Corpuscular Hemo globin 34.0 H, Mean Corpuscular Hemoglobin Concent 33.7, Red Cell Distribution Width 13.7, Neutrophils (%) (Auto) 85.3 H, Lymphocytes (%) (Auto) 7.2 L, Monocytes (%) (Auto) 6.9 H, Eosinophils (%) (Auto) 0.0, Basophils (%) (Auto) 0.1, Neutrophils # (Auto) 12.0 H, Lymphocytes # (Auto) 1.0 L, Monocytes # (Auto) 1.0 H, Eosinophils # (Auto) 0.0, Basophils # (Auto) 0.0, Calcium Level 8.6 L BENNIE DUTTA PA-C March 29, 2019 09:56
--- NOTE | 2019-03-29 10:48 | REP ---
Clinical: Dyspnea. Technique: PA and lateral. Comparison: 03/27/2019. Findings: Mediastinum and cardiac silhouette are within normal limits and stable. Lung beth demonstrate chronic changes. Trace left basilar atelectasis cannot be excluded. No focal consolidation, effusion, or pneumothorax. Skeletal structures demonstrate age-related osteopenia and degenerative change. Impression: Chronic stable changes. Possible trace left basilar atelectasis. Electronically Signed by Pavel Rivas MD 03/29/2019 10:40 A
[2019-03-29] MEDS: KCL 10MEQ/100ML SWI (KRUN) 10 MEQ in APPROPRIATE DILUENT 1 EA IV SCH ×2 (11:03→12:45)
[2019-03-29] MEDS: ISOSORBIDE DIN. (ISORDIL) 5 MG TAB PO SCH ×3 (11:06→18:02)
[2019-03-29] MEDS: traZODone 25MG PER 1/2 TABLET PO SCH ×2 (12:00→21:17)
[2019-03-29] MEDS: ROSUVASTATIN 10 MG TAB (CRESTOR) PO SCH (21:17)
[2019-03-30 04:00] VITALS: BP 144/67
[2019-03-30] MEDS: LEVOTHYROXINE 100MCG TABLET (0.1MG) PO SCH (05:10)
[2019-03-30] MEDS: methylPREDNISolone INJ 125 MG/2 ML VIAL (J2930) IV SCH ×2 (05:10→11:47)
[2019-03-30] MEDS: LEVOTHYROXINE 75MCG TABLET (0.075MG) PO SCH (05:10)
[2019-03-30] MEDS: SLF 3 ML SYR IV SCH (05:10)
[2019-03-30 05:48] LABS: BASO % 0.1 % (0.0-1.0); HEMATOCRIT 39.2 % (36.0-47.0); HEMOGLOBIN 12.3 g/dl (12.0-15.5); LYMPH # 0.5 10^3/uL (1.5-4.5); LYMPH % 2.7 % (24.0-44.0); MEAN CORPUSCULAR HEMOGLOBIN 32.3 pg (27.0-33.0); MEAN CORPUSCULAR HGB CONC 31.4 g/dl (32.0-36.5); MEAN CORPUSCULAR VOLUME 102.9 fl (80.0-96.0); MONO # 0.9 10^3/uL (0.0-0.8); MONO % 5.1 % (0.0-5.0); NEUTROPHILS # 15.4 10^3/uL (1.8-7.7); NEUTROPHILS % 91.4 % (36.0-66.0); PLATELET COUNT, AUTOMATED 289 10^3/uL (150-450); RED BLOOD COUNT 3.81 10^6/uL (4.00-5.40); WHITE BLOOD COUNT 16.8 10^3/uL (4.0-10.0)
[2019-03-30 06:11] VITALS: BP 136/70
[2019-03-30] MEDS: ISOSORBIDE DIN. (ISORDIL) 5 MG TAB PO SCH ×2 (06:11→11:47)
[2019-03-30 06:18] LABS: CALCIUM LEVEL 8.6 MG/DL (8.8-10.2); CREATININE FOR GFR 1.06 MG/DL (0.55-1.30); GLOMERULAR FILTRATION RATE 52.2 (>32); POTASSIUM SERUM 3.5 MEQ/L (3.5-5.1)
[2019-03-30 08:00] VITALS: BP 145/66
[2019-03-30] MEDS: METOPROLOL TART 50 MG TAB PO SCH (09:00)
[2019-03-30] MEDS: TOLTERODINE TARTRATE 2 MG LA CAP (DETROL LA) PO SCH (09:00)
[2019-03-30] MEDS ORDERED: POTASSIUM CHLORIDE 10 MEQ SR TABLET PO SCH (09:00)
[2019-03-30] MEDS: DULoxetine 30 MG CAP (CYMBALTA) PO SCH (09:00)
[2019-03-30] MEDS: TICAGRELOR 90 MG TABLET (BRILINTA) PO SCH (09:00)
[2019-03-30] MEDS: ENOXAPARIN 100MG/1ML SYRINGE (J1650) SC SCH (09:00)
[2019-03-30] MEDS: ASPIRIN 325 MG TAB PO SCH (09:00)
[2019-03-30] MEDS: traZODone 25MG PER 1/2 TABLET PO SCH (11:47)
--- NOTE | 2019-03-30 13:49 | IPNPDOC ---
Text Note Date of Service The patient was seen on 03/30/19. NOTE CARDIOLOGY CONSULT NOTE FOR DR GARDNER HPI: Ms. Lockett is seen on bedside rounds this morning, nursing staff was alerted minutes earlier as she was not responsive to sternal rub. However upon our examination she awoke and could verbalize to us that she was not in any pain/ discomfort. She is fatigued however, nursing said she did not sleep well last night. She does not complain of difficulty breathing, she denies any of the prior chest pain. ROS: General: She is fatigued, but states she is not in any pain. HEENT: Denies change in vision Resp: denies SOB Cardiac: No chest pain currently on examination PE Vitals: See below General: This is an 88 year old women appearing chronically decompensated, she looks fatigued, weak, laying in bed this morning HEENT: EOMI, tongue is diffusely swollen but improving, moist mucus membranes Resp: diminished throughout, no rales, crackles or wheezing Cardio: normal s1 and s2., no s4 appreciated, MR murmur present, RRR Abdominal: nabsx4, no hepatosplenomegaly, no masses, no tenderness to palpation, no distension, no rebound ridgity or guarding Extremities: b/l LE trace edema without cyanosis or mottling A&P This is an 88 year old female who presented to the ED with tongue swelling and found to have increased troponin level and subsequent development of ST elevation upon hospital admission and forthcoming EKG's. 1. Elevated Troponin in light of ST elevation in leads lateral leads, I, AVL, V4-6, with associated increase in troponin levels -Overnight telemetry is reviewed. Do not feel Ms. Lockett has a good prognosis, it was recommended to primary care to discuss Comfort measures with the patient and daughter, in light of the patient not wanting aggressive measures performed. Otherwise, she would most definitely benefit from cardiac cath, however this is not the patients wishes. We will continue to support medically for now. Yesterday's EKG demonstrated lateral lead ST elevations improving, typical of [place] in evolution. Her troponin level has improved of recent but is still 5.9 from 6.2. She did have isosorbide dinitrate added to her medical regime, she does not appear dyspneic this morning and does not complain of SOB. The patient has expressed wishes to not have any invasive intervention as stated above. It is evident from her ECHO that she has had some inferior lateral wall abnormality/hypokinesis. She would benefit from ultimate coronary cath. as such. She is to continue on Ticagrelor, Lovenox and aspirin. She has had her beta oscar increased, and is tolerating it well. HR seems better controlled, BP is stable. She has had no history of major bleeding events, per patient and daughter. Unfortunately her prognosis is not good, given her symptoms, ECHO results, and wishes to not pursue more invasive procedures such as coronary cath., we will continue to medically manage for now. 2. Angioedema of tongue -Her ANAMARIA-I's have been d/c, her tongue swelling is improved this morning. She should avoid these medications in the future, her left foot swelling could possibly represent another past episode of ANAMARIA related angioedema. This is unfortunate as given he current cardiac situation, she would benefit from ANAMARIA therapy. ENT has been consulted and is aware the patient is in the hospital. VS,Casee, I+O VS, Mikebone, I+O Laboratory Tests 03/30/19 05:30 Red Blood Count 3.81 L, Mean Corpuscular Volume 102.9 H, Mean Corpuscular Hemoglobin 32.3, Mean Corpuscular Hemoglobin Concent 31.4 L, Red Cell Distributi on Width 13.6, Neutrophils (%) (Auto) 91.4 H, Lymphocytes (%) (Auto) 2.7 L, Monocytes (%) (Auto) 5.1 H, Eosinophils (%) (Auto) 0.0, Basophils (%) (Auto) 0.1, Neutrophils # (Auto) 15.4 H, Lymphocytes # (Auto) 0.5 L, Monocytes # (Auto) 0.9 H, Eosinophils # (Auto) 0.0, Basophils # (Auto) 0.0, Calcium Level 8.6 L Vital Signs Date Time Temp Pulse Resp B/P (MAP) Pulse Ox O2 Delivery O2 Flow Rate FiO2 03/30/19 08:15 4.0 03/30/19 08:00 98.2 71 18 145/66 (92) 89 03/27/19 13:24 Room Air I&O- Last 24 Hours up to 6 AM 03/30/19 06:00 Intake Total 840 ml Output Total 750 ml Balance 90 ml GME ATTESTATION GME ATTESTATION My faculty preceptor for this patient encounter was physically present during the encounter and was fully available. All aspects of the patient interview, examination, medical decision making process, and medical care plan development were reviewed and approved by the faculty preceptor. The faculty preceptor is aware and concurs with the plan as stated in the body of this note and will attest to such by his/her cosignature. MAURICE ROBIN DO March 30, 2019 13:49
--- NOTE | 2019-03-30 15:24 | DSES ---
DATE OF ADMISSION: 03/28/2019 DATE OF DISCHARGE: 03/30/2019 DISCHARGE SUMMARY/EXPIRATORY SUMMARY ATTENDING PHYSICIAN: Dr. Hector Gil. HISTORY: This is an 88-year-old female patient who was admitted to [facility] emergency room with angioedema of the tongue. She reported that she awoke with a swollen tongue. Family was concerned that she had a stroke because of slurred speech. Upon arrival to the emergency room, it was discovered that her tongue was swollen and edematous and isolation of any other evidence of neurologic injury. She was felt to have angioedema of the tongue, probably from losartan angiotensin receptor oscar (ARB) and she was admitted to the progressive care unit for further management and monitoring. Dr. Cagle was business relationship manager and he was called in the event that things progressed and she suffered upper airway obstruction or had difficulty handling her secretions. She was started on Solu-Medrol intravenously and subsequently has had improvement this morning to near resolution of the swelling of her tongue. Unfortunately, she was also found to have suffered a mild cardiac infarction on admission, with her troponin peaking at 8.98. Followup echocardiogram confirmed the inferior wall, particularly the midsegment, and probably the apical segment, appeared to be hypokinetic. Overall, hypokinesis was noted in the other tamez of the left ventricle. Her left atrium appeared to be mildly enlarged. She had mild mitral regurgitation with mitral anulus calcification. Patient denied surgical or aggressive intervention in regards to her myocardial infarction, both before and after the echocardiogram, acknowledging and accepting that her prognosis was poor as a result of cardiac injury. The patient did remain stable up until this morning, when she was attended to by a nurse who had difficulty arousing her. Dr. Grossman and then myself both saw the patient. She was able to converse with both of us. Dr. Grossman reported that she conversed appropriately. She was not appropriate with me and attempted to answer questions, although her speech was not coherent. As I left the room to call family, received a call back from the nurse that the family had arrived and that the patient continued to decline further, subsequently losing her pulse. She was a DO NOT RESUSCITATE, did not want active or aggressive intervention. Her family was at bedside at the time she passed and they were appreciative of the care that she received and in support of the decisions that the patient had made prior to her passing. Her primary care provider (PCP) is Dr. Douglas Tapia. DISCHARGE DIAGNOSES: Include: 1. ST elevation myocardial infarction. 2. Angioedema, likely secondary to angiotensin receptor oscar (ARB). 3. Hypertension. 4. Hypothyroidism. 5. History of supraventricular tachycardia (SVT). 6. History of basal cell carcinoma.
== END 2019-03-30 08:20 | disposition expired ==
LOC: EDBD 09:59 → M ED 09:59 → M ED INP 10:00 → UNDOADMOB 11:56 → INTOOBSV 11:56 → M ED INP 11:56 → M PCU 13:13 → M ED INP 13:13 → M PCU 13:13 → OBSVTOIN 03-28 15:13
PROVIDERS: ADMIT Family Medicine; ATTEND Family Medicine
DX: I21.4 Non-ST elevation (NSTEMI) myocardial infarction (principal); T78.3XXA Angioneurotic edema, initial encounter; I10 Essential (primary) hypertension; T44.5X5A Adverse effect of predominantly beta-adrenoreceptor agonists, initial encounter; F32.9 Major depressive disorder, single episode, unspecified; N32.81 Overactive bladder; E03.9 Hypothyroidism, unspecified; Z66 Do not resuscitate; Z85.3 Personal history of malignant neoplasm of breast; Z92.3 Personal history of irradiation; Z91.048 Other nonmedicinal substance allergy status; Z88.8 Allergy status to other drugs, medicaments and biological substances; Z79.891 Long term (current) use of opiate analgesic; Z79.82 Long term (current) use of aspirin; Z79.899 Other long term (current) drug therapy; Z90.49 Acquired absence of other specified parts of digestive tract; Z85.828 Personal history of other malignant neoplasm of skin; Z87.891 Personal history of nicotine dependence